=== PATIENT | female | born 2000 ===

== ENCOUNTER → 2018-07-28 18:59 | Outpatient (REF) | payer OTHER, SELFPAY ==
[2018-07-28 19:22] LABS: Iron 155 ug/dL (37-170)
[2018-07-28 19:40] LABS: Vitamin D 25 Hydroxy (D3) 42.2 ng/mL (30.0-100.0)
[2018-07-28 20:27] LABS: Erythrocyte Sedimentation Rate 4 MM/HR (0-20)
[2018-07-28 20:56] LABS: HEMOLYSIS < 15 (0-50); Percent Iron Saturation 45 % (15-50); Total Iron Binding Capacity 341 ug/dL (265-497); Transferrin 277 mg/dL (206-381)
[2018-07-28 21:21] LABS: Ferritin 26.4 ng/mL (6.27-137)
[2018-07-30 17:28] LABS: Dehydroepiandrosterone Sulfate 220 mcg/dL (51-321)
== END ==
LOC: LAB 18:59
PROVIDERS: Visit Provider Naturopath
DX: L70.0 Acne vulgaris (principal); L68.0 Hirsutism; E28.2 Polycystic ovarian syndrome; D50.9 Iron deficiency anemia, unspecified; F33.9 Major depressive disorder, recurrent, unspecified
CPT/HCPCS: 36415; 82306; 82627; 82728; 83540; 83550; 84402; 84403; 85651